=== PATIENT | male | born 1955 | race Caucasian/White ===

== ENCOUNTER → 2018-11-22 | Outpatient (CLI) | payer OTHER | LOC: CAT 09:23 | DX: Z13.6 Encounter for screening for cardiovascular disorders (principal); E78.00 Pure hypercholesterolemia, unspecified; I25.10 Atherosclerotic heart disease of native coronary artery without angina pectoris ==

== ENCOUNTER → 2019-08-09 | Outpatient (CLI) | payer BC | LOC: RAD 12:14 | DX: R05 Cough (principal) ==

== ENCOUNTER → 2019-08-17 | Outpatient (CLI) | payer BC | LOC: RAD 10:37 | DX: J18.9 Pneumonia, unspecified organism (principal) ==

== ENCOUNTER → 2020-06-25 | Outpatient (CLI) | payer BC, OTHER | LOC: SJCVCIMAG 09:53 | PROVIDERS: ATTEND Internal Medicine | DX: I65.23 Occlusion and stenosis of bilateral carotid arteries (principal) ==

== ENCOUNTER → 2021-06-25 | Outpatient (CLI) | payer BC, OTHER | LOC: SJCVCIMAG 06-18 11:37 | PROVIDERS: ATTEND Internal Medicine | DX: I65.23 Occlusion and stenosis of bilateral carotid arteries (principal) ==